=== PATIENT | male | born 1935 | race Caucasian/White ===

== ENCOUNTER → 2016-07-22 | Outpatient (CLI) | payer MEDICARE ==
[~2016-07-22] MED LIST: IOHEXOL 240 MG/ML 50ML VIAL. PO ONE; IOHEXOL 300 MG/ML 75 ML VIAL. IV ONE; IOHEXOL 300 MG/ML 75 ML VIAL. ONE
[2016-07-22 11:59] LABS: GFR 72.1
--- NOTE | 2016-07-22 14:24 | RAD ---
CT of the abdomen and pelvis with contrast, 07/22/2016: History: Abdominal pain Multidetector CT imaging was performed following oral and IV administration of contrast. The heart is mildly enlarged. There is a large hiatal hernia. There are prominent peripheral opacities in both lung bases compatible with fibrosis. There is associated peripheral honeycombing. No hepatic abnormality is seen. No dense gallstones are evident. The pancreas is unremarkable. The spleen is of normal size. Single small nonobstructing calculi are present in both kidneys. The kidneys show no evidence of obstruction or mass. The adrenal glands are unremarkable. There is moderate calcific plaquing of the abdominal aorta and its branches without evidence of aneurysm. An inferior vena cava filter is in place in an infrarenal location. No abdominal or pelvic adenopathy is seen. The prostate gland is at the upper limits of normal in size. The urinary bladder is moderately distended. Scattered colonic diverticula are present, most numerous in the sigmoid and descending colon. No paracolonic inflammatory process is seen. The bowel loops are not dilated. No free fluid or free air is evident in the abdomen or pelvis. Moderate multilevel degenerative changes are present in the lumbar spine with a minimal spondylolisthesis at L5-S1. IMPRESSION: 1. Colonic diverticulosis. 2. Single nonobstructing calculi in both kidneys. 3. Large hiatal hernia. 4. Distended urinary bladder. 5. Moderate bibasilar pulmonary fibrosis. PQRS Compliance Statement: One or more of the following individualized dose reduction techniques were utilized for this examination: 1. Automated exposure control 2. Adjustment of the mA and/or kV according to patient size 3. Use of iterative reconstruction technique
== END | disposition home or self-care (01) ==
LOC: CT 11:20
PROVIDERS: ATTEND Family Medicine
DX: K44.9 Diaphragmatic hernia without obstruction or gangrene (principal); N20.0 Calculus of kidney; M43.17 Spondylolisthesis, lumbosacral region; J84.10 Pulmonary fibrosis, unspecified; Z45.2 Encounter for adjustment and management of vascular access device; K57.30 Diverticulosis of large intestine without perforation or abscess without bleeding; R91.8 Other nonspecific abnormal finding of lung field; R14.0 Abdominal distension (gaseous)
CPT/HCPCS: 36415; 74177; 82565; 84520; Q9967

== ENCOUNTER → 2016-08-11 | Outpatient (CLI) | payer MEDICARE ==
--- NOTE | 2016-08-11 12:13 | RAD ---
Right thumb radiographs History: Pain in right thumb. Comparison: None. Findings: Frontal view of the right hand. Oblique and lateral views of the first digit of the right hand (thumb). No acute fracture or dislocation is identified. Mild-moderate first CMC degeneration is noted with some narrowing of the joint space and sclerosis. Impression: 1. No acute osseous traumatic injury identified in the right thumb. 2. Mild-moderate first CMC degeneration.
== END | disposition home or self-care (01) ==
LOC: DXRAD 10:49
PROVIDERS: ATTEND Family Medicine
DX: M79.644 Pain in right finger(s) (principal)
CPT/HCPCS: 73140